=== PATIENT | female | born 1990 | race African-American/Black ===

== ENCOUNTER 2019-08-05 10:04 | Emergency (ER) | payer OTHER ==
[~2019-08-05] VITALS: Ht 160 cm; Wt 103.7 kg
[2019-08-05 11:01] VITALS: BP 128/85
--- NOTE | 2019-08-05 11:18 | NUR ---
Patient/Caregiver given discharge instructions and they have confirmed that they understand the instructions. Patient ambulatory with steady gait.
== END 2019-08-05 11:38 | disposition home or self-care (01) ==
LOC: ED 11:23
DX: R05 Cough (principal)
CPT/HCPCS: 99281